=== PATIENT | female | born 1995 | race Caucasian/White ===

== ENCOUNTER 2020-08-05 16:47 | Emergency (ER) | payer OTHER, SELFPAY ==
[2020-08-05 17:02] VITALS: BP 133/87; PULSE 104; RESP 18; TEMP 36.8; O2SAT 99
[2020-08-05 17:06] VITALS: BP 133/87; PULSE 104; RESP 18; TEMP 36.8; O2SAT 99
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
[2020-08-05] MEDS: TETANUS,DIPHTHERIA,AC PERTUSSIS ADULT (0.5 ML) BOOSTRIX IM (17:23)
== END 2020-08-05 17:33 | disposition home or self-care (01) ==
PROVIDERS: Emergency Provider Nurse Practitioner Family
DX: S81.812A Laceration without foreign body, left lower leg, initial encounter (principal); W25.XXXA Contact with sharp glass, initial encounter; Z23 Encounter for immunization; F17.200 Nicotine dependence, unspecified, uncomplicated
CPT/HCPCS: 12001; 90471; 90715; 99212; G0463

== ENCOUNTER 2020-10-26 13:04 | Emergency (ER) | payer OTHER, SELFPAY ==
--- NOTE | ~2020-10-26 | CT_ITS ---
EXAMINATION: CT facial bones w con DATE: 10/26/2020 16:03 INDICATION: Facial and right thigh pain TECHNIQUE: Computed tomography (CT) of the facial bones and maxillofacial region was performed with 7 5 cc of Omnipaque 350 intravenous contrast. The dose-length product (DLP) was 286.75 mGy-cm. Automate d exposure control and iterative reconstruction technique were employed. COMPARISON: None. FINDINGS: The globes are normal. No facial fracture is identified. No abnormal enhancement is present . The paranasal sinuses are clear. The visualized portions of the cervical spine are unremarkable. IMPRESSION: 1. No acute abnormality. Reviewed, dictated and finalized at location B. IMPRESSION: 1. No acute abnormality.
[2020-10-26 14:01] VITALS: BP 140/69; PULSE 61; RESP 18; TEMP 36.7; O2SAT 100
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
[2020-10-26 16:08] LABS: Estimated CRCL calculation 105 ml/min; Estimated Glomerular Filt Rate > 60
[2020-10-26 17:14] VITALS: BP 133/57; PULSE 78; RESP 18; O2SAT 100
== END 2020-10-26 17:15 | disposition home or self-care (01) ==
PROVIDERS: Emergency Provider Emergency Medicine
DX: S09.93XA Unspecified injury of face, initial encounter (principal); F17.200 Nicotine dependence, unspecified, uncomplicated; W22.8XXA Striking against or struck by other objects, initial encounter
CPT/HCPCS: 70487; 81025; 99284; Q9967

== ENCOUNTER 2020-12-12 19:38 | Emergency (ER) | payer OTHER, SELFPAY ==
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
[2020-12-12 19:46] VITALS: BP 118/69; PULSE 92; RESP 18; TEMP 36.7; O2SAT 100
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
[2020-12-12] MEDS: KETOROLAC (*BKC) 60 MG/2 ML VIAL IM (20:38)
[2020-12-12 21:59] VITALS: BP 120/56; PULSE 84; RESP 16; O2SAT 100
== END 2020-12-12 22:01 | disposition home or self-care (01) ==
PROVIDERS: Emergency Provider Emergency Medicine
DX: S81.831A Puncture wound without foreign body, right lower leg, initial encounter (principal); S39.92XA Unspecified injury of lower back, initial encounter; V86.59XA Driver of other special all-terrain or other off-road motor vehicle injured in nontraffic accident, initial encounter; F17.200 Nicotine dependence, unspecified, uncomplicated
CPT/HCPCS: 72100; 73590; 96372; 99284; J1885

== ENCOUNTER 2022-10-20 10:24 | Outpatient (CLI) | payer OTHER, SELFPAY ==
--- NOTE | ~2022-10-20 | US_ITS ---
US breast BI complete INDICATION: Bilateral nipple discharge TECHNIQUE: Dedicated bilateral complete breast ultrasound including all 4 quadrants in the subareolar location COMPARISON: No prior studies for comparison. FINDINGS: The right breast is composed of normal heterogeneous echotexture without focal mass. In the subareolar location of the left breast there is an oval parallel oriented hypoechoic mass measuring 12 x 11 x 4 mm with no significant posterior features. There is internal vascularity. IMPRESSION: 1: Probable benign left breast mass in the subareolar location measuring 12 mm. BI-RADS CATEGORY 3-PROBABLY BENIGN FINDING RECOMMENDATION: 6 month follow-up Limited left breast ultrasound recommended. Reviewed, dictated and finalized at location A.
== END 2022-10-20 10:25 | disposition home or self-care (01) ==
PROVIDERS: Visit Provider Nurse Practitioner
DX: N63.20 Unspecified lump in the left breast, unspecified quadrant (principal)
CPT/HCPCS: 76641